=== PATIENT | male | born 1960 | race Caucasian/White ===

== ENCOUNTER 2024-12-02 12:42 | Emergency (ER) | payer BC, SELFPAY ==
[2024-12-02 12:45] VITALS: BP 151/89
--- NOTE | 2024-12-02 15:19 | ED.GENMED ---
History of Present Illness
General
Chief Complaint: Crisis Evaluation
Source: patient and spouse
Exam Limitations: none
Time Seen by Provider: 12/02/24 15:10
History of Present Illness
History of Present Illness:
See MDM
Past History
Past History
ED Past Medical History: Psychiatric
ED Past Surgical History: None
Social History
Tobacco: Non-smoker
Alcohol: None
Phy Exam
Physical Exam
Physical Exam:
See MDM
Course
Orders/Labs/Results
Orders:
Orders
12/02/24 12:52
1:1 Observation - Suicide/ Violent Behavior As Directed
Crisis Consult Urgent
Reason for Consult: anixety/si
12/02/24 15:18
Lorazepam [Ativan] 1 mg PO NOW STA
12/02/24 15:31
Alcohol Urgent
Complete Blood Count/With Diff Urgent
Comprehensive Metabolic Panel Urgent
Abnormal Lab Results
12/02/24
15:31
Carbon Dioxide 21 L mmol/L
(22-30)
Glucose 123 H mg/dl
(70-99)
ALT 51 H U/L
(0-50)
Albumin 5.4 H g/dl
(3.5-5.0)
12/02/24 15:31
12/02/24 15:31
Vital Signs
Initial and Last Documented VS:
Initial Vital Signs
Temp Pulse Resp BP Pulse Ox
98.1 F 88 20 151/89 99
12/02/24 12:45 12/02/24 12:45 12/02/24 12:45 12/02/24 12:45 12/02/24 12:45
Last Documented Vital Signs
Temp Pulse Resp BP Pulse Ox
98.1 F 89 16 141/91 99
12/02/24 12:45 12/02/24 15:27 12/02/24 15:27 12/02/24 15:27 12/02/24 15:27
MDM/Problems Addressed
Differential Diagnosis Includes:
Note:
CHIEF COMPLAINT(S)
Emotional distress and thoughts of self-harm.
HISTORY OF PRESENT ILLNESS
The patient is a 64-year-old male who presents with significant emotional distress following recent personal stressors, including a divorce. This distress has been ongoing for the past few days. The patient reports feeling overwhelmed and mentioned
contemplating self-harm by thinking about throwing himself out of a window, expressing it as a desire 'just to stop' the uncomfortable feelings.
The incident led to the involvement of a mobile crisis team, which suggested possible facility placement. The patient is apprehensive about this option but acknowledges it might be beneficial. He has no prior history of being in a mental health
facility. The patient denies any current thoughts of self-harm but expresses concerns about potential actions if he were to return home.
There are no reports of hallucinations or auditory hallucinations. The patient denies any drug or alcohol use and has no known history of a formal mental health diagnosis such as anxiety, depression, or bipolar disorder.
SOCIAL DETERMINANTS AFFECTING HEALTH
The patient reports undergoing a recent divorce, which has significantly affected him emotionally. He has been in contact with a crisis team observing the need for psychosocial support but is hesitant about facility placement.
PHYSICAL EXAM
General: Alert, no acute distress.
Skin: Warm, dry.
Head: Normocephalic, atraumatic
Neck: Appears supple, trachea midline.
Eyes, Ears, Nose, Mouth, and Throat: Oral mucosa moist.
Cardiovascular: No signs of cyanosis. Regular rate and rhythm
Respiratory: Respirations are non-labored.
Abdomen: Non-distended
Musculoskeletal: No deformities. No leg edema
Neurological: No focal neurological deficit observed.
Psychiatric: Depressed affect
PLAN
- Arrange for crisis intervention and explore facility placement options for the patient.
- Order lorazepam (Ativan) as needed for anxiety management during the emergency department stay.
DIFFERENTIAL DIAGNOSIS
The Differential Diagnosis includes, in no particular order and is not limited to:
1. Major Depressive Disorder
2. Adjustment Disorder with Depressed Mood
3. Persistent Depressive Disorder
4. Anxiety Disorder
5. Post-Traumatic Stress Disorder
6. Substance-Induced Mood Disorder
7. Bipolar Disorder
8. Generalized Anxiety Disorder
9. Acute Stress Reaction
10. Schizoaffective Disorder
SUMMARY OF ENCOUNTER
The patient, a 64-year-old male, presented to the emergency department with significant emotional distress following a recent divorce. He experienced thoughts of self-harm, specifically contemplating jumping out of a window. The crisis team was
involved and recommended possible facility placement due to the high-risk nature of his case. The patient was evaluated and found to be medically stable and cleared for transfer.
DISPOSITION
Transfer for inpatient psychiatric treatment.
PLAN
Arrange for inpatient psychiatric facility placement for ongoing psychological support and treatment.
MEDICAL DECISION MAKING
Chronic conditions affecting care: Recent divorce presenting emotional distress.
-Complexity of Data Reviewed:
Major Depressive Disorder, Adjustment Disorder with Depressed Mood, Persistent Depressive Disorder, Anxiety Disorder, Post-Traumatic Stress Disorder, Substance-Induced Mood Disorder, Bipolar Disorder, Generalized Anxiety Disorder, Acute Stress
Reaction, Schizoaffective Disorder.
-Data:
Category 3: Discussion of management with mental health liaison and crisis team.
DIAGNOSIS
Adjustment Disorder with Depressed Mood (ICD-10: F43.21)
*Pulse Oximetry
SaO2: 99
Oxygen Mode of Delivery: Room air
Patient hypoxic: no
*Critical Care Note
Total Time (30-74mins, 75-104mins- exclusive of procedures): Not Applicable
ED Attending Note
-
Portions of this chart may have been created with voice recognition software.� Occasional wrong word or��sound alike� substitutions may have occurred due to the inherent limitations of voice recognition software.
Discharge Plan
Departure
Patient Disposition: Psych Facility
Date of Disposition: 12/02/24
Time of Disposition: 15:21
Discharge Problem:
Depression
Referrals:
Mathieu Hester MD [Family Provider]
Interventions
Interventions:
*Risk Screen - Suicide Last Done: 12/02/24 12:45
*General Assessment Last Done: 12/02/24 12:45
*Neglect/Abuse Screening Last Done: 12/02/24 12:45
*ED- Fall Risk Assessment Last Done: 12/02/24 16:02
*ED COVID-19 Vaccine History Last Done: 12/02/24 16:02
ED-Psychological Assessment Last Done: 12/02/24 15:31
Discharge Date and Time
Print Language: YAKUT
[2024-12-02 15:25] VITALS: BMI 29.9
[2024-12-02 15:27] VITALS: BP 141/91
[2024-12-02 15:42] LABS: Hematocrit 48.5 % (39.0-52.0); Hemoglobin 16.4 g/dL (13.0-18.0); Mean Corp Hgb Conc. 33.8 g/dL (33.0-37.0); Mean Corpuscular Volume 81.2 fL (80.0-94.0); Nucleated Red Blood Cells % 0 % (-); Platelet Count 219 10^3/uL (130-400); Red Cell Dist. Width 13.4 % (11.5-14.5)
[2024-12-02 16:02] LABS: ALT (SGPT) 51 U/L (0-50); AST (SGOT) 35 U/L (17-59); Albumin 5.4 g/dl (3.5-5.0); Alkaline Phosphatase 73 U/L (38-126); Blood Urea Nitrogen 17 mg/dl (9-20); Calcium 10.1 mg/dl (8.4-10.2); Carbon Dioxide 21 mmol/L (22-30); Chloride 103 mmol/L (98-107); Estimated Creatinine Clearance 99 ml/min; Glucose 123 mg/dl (70-99); Potassium 4.4 mmol/L (3.5-5.1); Sodium 136 mmol/L (135-145); Total Protein 7.8 g/dl (6.3-8.2); eGFR > 60.00
--- NOTE | 2024-12-02 16:02 | EDRN ---
Crisis just updated this RN and pt is to go to [place] and she is arranging transport for pt at this time.
--- NOTE | 2024-12-02 16:16 | EDRN ---
[facility] home health care worker stated pt to leave [facility] 17:00 for [place] in pt psychiatric facility [facility]. Pt was asked by [employer] or pasture [employer] worker to remove glucose monitor he has on. Also [employer] or pasture farm worker gave pt a boxed lunch.
[2024-12-02] MEDS: ATIVAN 1 MG PO (17:15)
--- NOTE | 2024-12-02 17:16 | EDRN ---
[facility]. Transport is scheduled for17:00 so running sl late.
--- NOTE | 2024-12-02 17:32 | EDRN ---
Pt's brother now in room w/ pt at this time as well.
--- NOTE | 2024-12-02 17:47 | EDRN ---
Acute Care is delayed and now new arrival time 19:30 per crisis. Pt informed.
[2024-12-02 17:48] VITALS: BP 122/81
== END 2024-12-02 20:23 ==
LOC: EMR 12:42
PROVIDERS: EMERGENCY PHYSICIAN Student in an Organized Health Care Education/Training Program; FAMILY PHYSICIAN Family Medicine
DX: F43.21 Adjustment disorder with depressed mood (principal)
CPT/HCPCS: 99285; 80053; 82077; 85025